=== PATIENT | male | born 1980 ===

== ENCOUNTER 2017-12-28 07:28 | Day surgery (SDC) | payer BC ==
[~2017-12-28 07:28] MED LIST: ACETAMINOPHEN 1,000 MG/100 ML BTL IV ONE
[2017-12-28] MEDS ORDERED: ONDANSETRON HCL IV 4 MG/2 ML VIAL IVP ONE (07:29)
[2017-12-28] MEDS ORDERED: PROPOFOL 10 MG/ML VIAL IV ONE (07:29)
[2017-12-28] MEDS ORDERED: BUPIVACAINE 0.25% W/EPI MPF 30ML VIAL IVP ONE (07:29)
[2017-12-28] MEDS ORDERED: KETOROLAC 30 MG/ML VIAL IVP ONE (07:29)
[2017-12-28] MEDS ORDERED: MIDAZOLAM HCL 2MG/2ML VIAL IV ONE (07:29)
[2017-12-28] MEDS ORDERED: LIDOCAINE 2% MDV (20MG/ML) 20ML VIAL IV ONE (07:29)
[2017-12-28] MEDS ORDERED: SEVOFLURANE 250 ML INH ONE (07:29)
[2017-12-28] MEDS ORDERED: FENTANYL PF 100MCG/2ML VIAL IV ONE (07:29)
[2017-12-28] MEDS ORDERED: MORPHINE SULFATE 4MG/ML PREFILLED SYRINGE IVP ONE (07:29)
--- NOTE | 2017-12-29 15:21 | Operative Note ---
DATE OF SURGERY: 12/28/2017 PREOPERATIVE DIAGNOSIS: Torn medial meniscus of the right knee. POSTOPERATIVE DIAGNOSES: 1. Torn medial meniscus of the right knee. 2. Chondromalacia of the medial femoral condyle, right knee. OPERATIVE PROCEDURES: 1. Arthroscopic partial medial meniscectomy, right knee. 2. Arthroscopic chondroplasty, medial femoral condyle of the right knee. DESCRIPTION: This 37-year-old male was taken to the operating room and placed in the supine position on the operating room table. A general anesthetic was administered, the right lower extremity was elevated. It was exsanguinated and the tourniquet inflated to 300 mm Hg. Arthroscopic knee-knowles applied. Right knee prepped with Hibiclens and draped in the usual sterile fashion. An inferolateral portal was established for the 4 mm arthroscopic. Initial evaluation of the joint demonstrated normal appearance of the suprapatellar pouch. The patellofemoral articulation appeared normal. Through an inferior medial portal, probing revealed stability of all the articular cartilage at the patellofemoral joint. Medial and lateral gutters were examined and found to be normal. The lateral compartment was entered, and probing did not reveal any abnormalities of the meniscus nor the articular cartilage of the lateral compartment. The intercondylar notch was examined and found to be normal. The medial compartment was entered and a complex tear of the posterior horn and the medial meniscus was present. There were both flap and horizontal cleavage components with the apex being at approximately the 12:30 position. Utilizing basket forceps, we resected back to the apex of the tear and then tapered in each direction to form a smooth, contoured surface of the medial meniscus. It was probed and confirmed to be stable. The patient also had some early grade 2 chondromalacia at the very medial edge of the medial femoral condyle in the center of the weightbearing surface. This was debrided. This lesion was approximately 1 cm in greatest dimension. The joint was then copiously irrigated and suctioned, the instruments were removed, the portal was infiltrated with 0.25% Marcaine with epinephrine, and sterile dressings applied. Tourniquet and knee-knowles released, and the patient was taken to the recovery room in satisfactory condition. GROSS PATHOLOGY: A complex tear of the posterior horn of the medial meniscus was present, as well as grade 2 chondromalacia 1 cm at the medial edge of the medial femoral condyle was identified. CC: Katia Horne MD [facility]
== END 2017-12-28 10:08 | disposition home or self-care (01) ==
LOC: SUR 07:28
PROVIDERS: ATTEND Orthopaedic Surgery
DX: S83.231A Complex tear of medial meniscus, current injury, right knee, initial encounter (principal); M94.261 Chondromalacia, right knee; Z87.891 Personal history of nicotine dependence
CPT/HCPCS: 29881; 01400; J1885; J2405; J3010; J2274